=== PATIENT | female | born 1970 | race Caucasian/White ===

== ENCOUNTER 2021-10-01 06:54 | Inpatient (IN) ==
[2021-10-01] MEDS ORDERED: MAGNESIUM SULF RIDER 2 GM/50 ML PREMIX IV STA (07:35)
[2021-10-01 07:44] LABS: Basophils % 0.4 % (0.0-0.8); Eosinophils # 0.1 10*3/uL (0.0-0.87); Eosinophils % 1.3 % (0.00-10.9); Hematocrit 46.3 VOL% (35.7-47.0); Hemoglobin 15.2 GM/DL (12.0-16.0); Immature Granulocytes % 0.4 %; Immature Granulocytes Absolute 0.04 #; Lymphocytes # 2.5 10*3/uL (1.4-4.0); Lymphocytes % 23.7 % (21.3-54.2); Mean Corpuscular HGB Conc 32.8 GM/DL (32-36); Mean Corpuscular Volume 82.4 FL (87-102); Mean Platelet Volume 9.7 FL (9.6-12.0); Monocytes % 5.1 % (1.7-12.7); Neutrophils % 69.1 % (38.7-73.9); Platelet Count 260 T/CUMM (130-400); Red Blood Count 5.62 MC/CUMM (3.8-5.5); Red Cell Distribution Width 14.4 % (9.3-17.3); White Blood Count 10.7 T/CUMM (4-12)
[2021-10-01 08:04] LABS: Albumin 3.2 G/DL (3.4-5.0); Bilirubin,Total 0.9 MG/DL (0.20-1.00); Calcium 9.1 MG/DL (8.5-10.1); Osmolality,Calculated 281.4 MOS/KG (273-304); Potassium 3.4 MMOL/L (3.5-5.1); Total Protein 7.7 G/DL (6.4-8.2)
[2021-10-01] MEDS ORDERED: AMIODARONE INJ 150 MG in DEXTROSE 5% 100 ML IV ONE (08:21)
[2021-10-01] MEDS ORDERED: AMIODARONE 450 MG/9 ML VIAL IV ONE (08:30)
[2021-10-01] MEDS ORDERED: AMIODARONE INJ 450 MG in DEXTROSE 5% 241 ML IV SCH (08:30)
[2021-10-01] MEDS ORDERED: ACETAMINOPHEN 325 MG TABLET PO PRN (08:38)
[2021-10-01] MEDS ORDERED: ONDANSETRON 4 MG/2 ML VIAL IV PRN (08:38)
[2021-10-01] MEDS: ATORVASTATIN 40 MG TABLET PO SCH (09:44)
[2021-10-01] MEDS: ASPIRIN EC 81 MG TABLET PO SCH (09:44)
[2021-10-01] MEDS: ENOXAPARIN 40 MG/0.4 ML SYRINGE SUBCUT SCH (09:44)
[2021-10-01] MEDS: METOPROLOL SUCCINATE XL 25 MG TABLET PO SCH (09:44)
[2021-10-01] MEDS: PANTOPRAZOLE 40 MG TABLET PO SCH (09:44)
[2021-10-01] MEDS ORDERED: POTASSIUM CHLORIDE 20 MEQ TABLET PO STA (10:03)
[2021-10-01] MEDS: AMIODARONE INJ 450 MG in DEXTROSE 5% 241 ML IV SCH (17:02)
[2021-10-01] MEDS: DAPAGLIFLOZIN 10 MG TABLET PO SCH (17:43)
[2021-10-01] MEDS: POTASSIUM CHLORIDE 20 MEQ TABLET PO SCH (20:21)
[2021-10-01] MEDS ORDERED: POTASSIUM CHLORIDE 20 MEQ TABLET PO ONE (22:00)
[2021-10-02 04:48] LABS: Basophils # 0.1 10*3/uL (0.0-0.2); Basophils % 0.4 % (0.0-0.8); Eosinophils # 0.1 10*3/uL (0.0-0.87); Eosinophils % 0.9 % (0.00-10.9); Hemoglobin 14.3 GM/DL (12.0-16.0); Immature Granulocytes % 0.3 %; Immature Granulocytes Absolute 0.04 #; Lymphocytes # 3.1 10*3/uL (1.4-4.0); Lymphocytes % 26.6 % (21.3-54.2); Mean Corpuscular HGB Conc 31.8 GM/DL (32-36); Mean Platelet Volume 9.5 FL (9.6-12.0); Monocytes % 4.9 % (1.7-12.7); Neutrophils % 66.9 % (38.7-73.9); Platelet Count 242 T/CUMM (130-400); Red Blood Count 5.36 MC/CUMM (3.8-5.5); Red Cell Distribution Width 14.2 % (9.3-17.3); White Blood Count 11.7 T/CUMM (4-12)
[2021-10-02 05:15] LABS: Calcium 9.2 MG/DL (8.5-10.1); Osmolality,Calculated 277.5 MOS/KG (273-304); Potassium 4.6 MMOL/L (3.5-5.1)
[2021-10-02] MEDS: ASPIRIN EC 81 MG TABLET PO SCH (09:36)
[2021-10-02] MEDS: DAPAGLIFLOZIN 10 MG TABLET PO SCH (09:36)
[2021-10-02] MEDS: POTASSIUM CHLORIDE 20 MEQ TABLET PO SCH ×2 (09:36→20:30)
[2021-10-02] MEDS: AMIODARONE INJ 450 MG in DEXTROSE 5% 241 ML IV SCH (09:36)
[2021-10-02] MEDS: PANTOPRAZOLE 40 MG TABLET PO SCH (09:37)
[2021-10-02] MEDS: ENOXAPARIN 40 MG/0.4 ML SYRINGE SUBCUT SCH (09:37)
[2021-10-02] MEDS: METOPROLOL SUCCINATE XL 25 MG TABLET PO SCH (09:37)
[2021-10-02] MEDS: ATORVASTATIN 40 MG TABLET PO SCH (09:37)
[2021-10-02] MEDS: AMIODARONE 200 MG TABLET PO SCH ×2 (12:27→20:30)
[2021-10-03 06:24] LABS: Basophils # 0.1 10*3/uL (0.0-0.2); Basophils % 0.4 % (0.0-0.8); Eosinophils # 0.2 10*3/uL (0.0-0.87); Eosinophils % 1.4 % (0.00-10.9); Hematocrit 45.2 VOL% (35.7-47.0); Hemoglobin 14.5 GM/DL (12.0-16.0); Immature Granulocytes % 0.3 %; Immature Granulocytes Absolute 0.03 #; Lymphocytes # 2.9 10*3/uL (1.4-4.0); Lymphocytes % 25.2 % (21.3-54.2); Mean Corpuscular HGB Conc 32.1 GM/DL (32-36); Mean Corpuscular Volume 83.5 FL (87-102); Mean Platelet Volume 9.9 FL (9.6-12.0); Monocytes % 6.1 % (1.7-12.7); Neutrophils % 66.6 % (38.7-73.9); Platelet Count 245 T/CUMM (130-400); Red Blood Count 5.41 MC/CUMM (3.8-5.5); Red Cell Distribution Width 14.4 % (9.3-17.3); White Blood Count 11.4 T/CUMM (4-12)
[2021-10-03 06:54] LABS: Calcium 9.4 MG/DL (8.5-10.1)
[2021-10-03] MEDS: DAPAGLIFLOZIN 10 MG TABLET PO SCH (08:33)
[2021-10-03] MEDS: POTASSIUM CHLORIDE 20 MEQ TABLET PO SCH ×2 (08:33→20:17)
[2021-10-03] MEDS: AMIODARONE 200 MG TABLET PO SCH ×2 (08:34→20:17)
[2021-10-03] MEDS: PANTOPRAZOLE 40 MG TABLET PO SCH (08:34)
[2021-10-03] MEDS: METOPROLOL SUCCINATE XL 25 MG TABLET PO SCH (08:34)
[2021-10-03] MEDS: ATORVASTATIN 40 MG TABLET PO SCH (08:34)
[2021-10-03] MEDS: ASPIRIN EC 81 MG TABLET PO SCH (08:34)
[2021-10-03] MEDS: ENOXAPARIN 40 MG/0.4 ML SYRINGE SUBCUT SCH (08:34)
[2021-10-03] MEDS: SPIRONOLACTONE 50 MG TABLET PO SCH (11:00)
[2021-10-03] MEDS ORDERED: ALUM/MAG/SIMETH/LIDO VISC 1:1 30 ML BOTTLE PO ONE (23:54)
[2021-10-04 05:18] LABS: Basophils # 0.1 10*3/uL (0.0-0.2); Basophils % 0.4 % (0.0-0.8); Eosinophils # 0.1 10*3/uL (0.0-0.87); Eosinophils % 1.1 % (0.00-10.9); Hematocrit 45.7 VOL% (35.7-47.0); Hemoglobin 14.5 GM/DL (12.0-16.0); Immature Granulocytes % 0.3 %; Immature Granulocytes Absolute 0.04 #; Lymphocytes # 3.7 10*3/uL (1.4-4.0); Lymphocytes % 31.2 % (21.3-54.2); Mean Corpuscular HGB Conc 31.7 GM/DL (32-36); Mean Corpuscular Volume 82.9 FL (87-102); Mean Platelet Volume 9.7 FL (9.6-12.0); Platelet Count 259 T/CUMM (130-400); Red Blood Count 5.51 MC/CUMM (3.8-5.5); Red Cell Distribution Width 14.1 % (9.3-17.3); White Blood Count 11.8 T/CUMM (4-12)
[2021-10-04 05:42] LABS: Calcium 9.6 MG/DL (8.5-10.1); Osmolality,Calculated 275.7 MOS/KG (273-304); Potassium 4.1 MMOL/L (3.5-5.1)
[2021-10-04] MEDS: DAPAGLIFLOZIN 10 MG TABLET PO SCH (08:29)
[2021-10-04] MEDS: PANTOPRAZOLE 40 MG TABLET PO SCH (08:30)
[2021-10-04] MEDS: ASPIRIN EC 81 MG TABLET PO SCH (08:30)
[2021-10-04] MEDS: ENOXAPARIN 40 MG/0.4 ML SYRINGE SUBCUT SCH (08:30)
[2021-10-04] MEDS: POTASSIUM CHLORIDE 20 MEQ TABLET PO SCH ×2 (08:30→20:27)
[2021-10-04] MEDS: AMIODARONE 200 MG TABLET PO SCH ×2 (08:30→20:27)
[2021-10-04] MEDS: METOPROLOL SUCCINATE XL 25 MG TABLET PO SCH (08:30)
[2021-10-04] MEDS: ATORVASTATIN 40 MG TABLET PO SCH (08:30)
[2021-10-04] MEDS: SPIRONOLACTONE 50 MG TABLET PO SCH (08:31)
[2021-10-04] MEDS ORDERED: ZOLPIDEM 5 MG TABLET PO PRN (15:41)
[2021-10-04] MEDS: ALUMINUM/MAGNES/SIMETH MAX STR 30 ML UDCUP PO PRN ×2 (15:47→20:29)
[2021-10-05 05:41] LABS: Basophils # 0.1 10*3/uL (0.0-0.2); Basophils % 0.6 % (0.0-0.8); Eosinophils # 0.2 10*3/uL (0.0-0.87); Eosinophils % 1.5 % (0.00-10.9); Hematocrit 44.8 VOL% (35.7-47.0); Hemoglobin 14.5 GM/DL (12.0-16.0); Immature Granulocytes % 0.4 %; Immature Granulocytes Absolute 0.05 #; Lymphocytes # 3.5 10*3/uL (1.4-4.0); Lymphocytes % 30.3 % (21.3-54.2); Mean Corpuscular HGB Conc 32.4 GM/DL (32-36); Mean Corpuscular Volume 83.1 FL (87-102); Mean Platelet Volume 9.8 FL (9.6-12.0); Monocytes % 7.9 % (1.7-12.7); Neutrophils % 59.3 % (38.7-73.9); Platelet Count 272 T/CUMM (130-400); Red Blood Count 5.39 MC/CUMM (3.8-5.5); Red Cell Distribution Width 14.2 % (9.3-17.3); White Blood Count 11.7 T/CUMM (4-12)
[2021-10-05 05:58] LABS: Calcium 9.3 MG/DL (8.5-10.1); Potassium 4.2 MMOL/L (3.5-5.1)
[2021-10-05] MEDS: OXYMETAZOLINE 0.05% NASAL SPRAY 15 ML BOTTLE BOTH NARES SCH ×2 (09:06→20:04)
[2021-10-05] MEDS: AMIODARONE 200 MG TABLET PO SCH ×2 (09:07→20:03)
[2021-10-05] MEDS: ATORVASTATIN 40 MG TABLET PO SCH (09:07)
[2021-10-05] MEDS: SPIRONOLACTONE 50 MG TABLET PO SCH (09:07)
[2021-10-05] MEDS: POTASSIUM CHLORIDE 20 MEQ TABLET PO SCH ×2 (09:07→20:03)
[2021-10-05] MEDS: ASPIRIN EC 81 MG TABLET PO SCH (09:07)
[2021-10-05] MEDS: PANTOPRAZOLE 40 MG TABLET PO SCH (09:07)
[2021-10-05] MEDS: METOPROLOL SUCCINATE XL 25 MG TABLET PO SCH (09:07)
[2021-10-05] MEDS: DAPAGLIFLOZIN 10 MG TABLET PO SCH (09:11)
[2021-10-05] MEDS ORDERED: ceFAZolin 1,000 MG VIAL IRRIG ONE (13:00)
[2021-10-05] MEDS ORDERED: diphenhydrAMINE CAP 50 MG CAPSULE PO ONE (14:00)
[2021-10-05] MEDS ORDERED: DIAZEPAM 5 MG TABLET PO ONE (14:00)
[2021-10-05] MEDS ORDERED: TISSUE ADHESIVE 1 EACH APPLICATOR TOP ONE (16:35)
[2021-10-06 07:29] LABS: Calcium 9.5 MG/DL (8.5-10.1); Osmolality,Calculated 273.1 MOS/KG (273-304); Potassium 4.6 MMOL/L (3.5-5.1)
[2021-10-06 07:46] LABS: Basophils # 0.1 10*3/uL (0.0-0.2); Basophils % 0.6 % (0.0-0.8); Eosinophils # 0.1 10*3/uL (0.0-0.87); Eosinophils % 1.2 % (0.00-10.9); Immature Granulocytes % 0.4 %; Immature Granulocytes Absolute 0.05 #; Lymphocytes # 3.3 10*3/uL (1.4-4.0); Lymphocytes % 28.6 % (21.3-54.2); Mean Corpuscular HGB Conc 32.7 GM/DL (32-36); Mean Corpuscular Volume 82.1 FL (87-102); Mean Platelet Volume 9.8 FL (9.6-12.0); Monocytes % 6.7 % (1.7-12.7); Neutrophils % 62.5 % (38.7-73.9); Platelet Count 283 T/CUMM (130-400); Red Blood Count 5.97 MC/CUMM (3.8-5.5); Red Cell Distribution Width 14.3 % (9.3-17.3); White Blood Count 11.6 T/CUMM (4-12)
[2021-10-06] MEDS: POTASSIUM CHLORIDE 20 MEQ TABLET PO SCH (08:49)
[2021-10-06] MEDS: METOPROLOL SUCCINATE XL 25 MG TABLET PO SCH (08:49)
[2021-10-06] MEDS: ATORVASTATIN 40 MG TABLET PO SCH (08:49)
[2021-10-06] MEDS: PANTOPRAZOLE 40 MG TABLET PO SCH (08:49)
[2021-10-06] MEDS: AMIODARONE 200 MG TABLET PO SCH (08:49)
[2021-10-06] MEDS: DAPAGLIFLOZIN 10 MG TABLET PO SCH (08:49)
[2021-10-06] MEDS: ASPIRIN EC 81 MG TABLET PO SCH (08:51)
[2021-10-06] MEDS: SPIRONOLACTONE 50 MG TABLET PO SCH (08:51)
[2021-10-06] MEDS: OXYMETAZOLINE 0.05% NASAL SPRAY 15 ML BOTTLE BOTH NARES SCH (08:51)
[2021-10-06] MEDS ORDERED: DIAZEPAM 5 MG TABLET PO ONE (10:07)
[2021-10-06] MEDS ORDERED: diphenhydrAMINE CAP 25 MG CAPSULE PO ONE (10:07)
[2021-10-06] MEDS ORDERED: LIDOCAINE 1% 20 ML VIAL ONE (10:14)
[2021-10-06] MEDS ORDERED: HEPARIN/NACL 0.9% 2 UNITS/ML 1,000 UNIT/500 ML BAG IV ONE (10:14)
[2021-10-06] MEDS ORDERED: ceFAZolin 1,000 MG VIAL ONE (10:15)
[2021-10-06] MEDS ORDERED: MIDAZOLAM 2 MG/2 ML VIAL ONE ×2 (10:31→11:03)
[2021-10-06] MEDS ORDERED: fentaNYL 100 MCG/2 ML VIAL ONE ×2 (10:32→11:03)
[2021-10-06 12:51] VITALS: BP 135/90
== END 2021-10-06 14:59 | disposition home or self-care (01) | DRG 245 ==
LOC: EDUNIT# → EDBD → N.ED 06:54 → SUATTDRO 08:38 → N.EDINP 08:38 → N.ICU 16:30 → N.TELES 10-02 18:22
PROVIDERS: ADMIT Internal Medicine Cardiovascular Disease; ATTEND Internal Medicine Interventional Cardiology

== ENCOUNTER 2021-10-16 00:10 | Observation (INO) ==
[2021-10-16 01:50] LABS: Basophils # 0.1 10*3/uL (0.0-0.2); Basophils % 0.6 % (0.0-0.8); Eosinophils # 0.2 10*3/uL (0.0-0.87); Eosinophils % 1.4 % (0.00-10.9); Hematocrit 42.5 VOL% (35.7-47.0); Hemoglobin 13.9 GM/DL (12.0-16.0); Immature Granulocytes % 0.3 %; Immature Granulocytes Absolute 0.04 #; Lymphocytes # 3.4 10*3/uL (1.4-4.0); Lymphocytes % 26.4 % (21.3-54.2); Mean Corpuscular HGB Conc 32.7 GM/DL (32-36); Mean Corpuscular Volume 83.2 FL (87-102); Mean Platelet Volume 9.7 FL (9.6-12.0); Monocytes % 6.4 % (1.7-12.7); Neutrophils % 64.9 % (38.7-73.9); Platelet Count 267 T/CUMM (130-400); Red Blood Count 5.11 MC/CUMM (3.8-5.5); Red Cell Distribution Width 14.7 % (9.3-17.3); White Blood Count 12.9 T/CUMM (4-12)
[2021-10-16 02:04] LABS: Albumin 3.1 G/DL (3.4-5.0); Bilirubin,Total 0.4 MG/DL (0.20-1.00); Calcium 8.9 MG/DL (8.5-10.1); Osmolality,Calculated 275.7 MOS/KG (273-304); Potassium 3.7 MMOL/L (3.5-5.1)
[2021-10-16] MEDS ORDERED: ACETAMINOPHEN 325 MG TABLET PO PRN (03:02)
[2021-10-16] MEDS ORDERED: ONDANSETRON 4 MG/2 ML VIAL IV PRN (03:02)
[2021-10-16] MEDS ORDERED: POTASSIUM CHLORIDE 20 MEQ TABLET PO ONE (06:33)
[2021-10-16] MEDS ORDERED: MAGNESIUM SULF RIDER 2 GM/50 ML PREMIX IV STA (06:33)
[2021-10-16] MEDS ORDERED: SPIRONOLACTONE 50 MG TABLET PO SCH (09:00)
[2021-10-16] MEDS ORDERED: AMIODARONE 200 MG TABLET PO SCH (09:00)
[2021-10-16] MEDS ORDERED: ATORVASTATIN 40 MG TABLET PO SCH (09:00)
[2021-10-16] MEDS ORDERED: ENOXAPARIN 40 MG/0.4 ML SYRINGE SUBCUT SCH (09:00)
[2021-10-16] MEDS ORDERED: NON-FORMULARY MEDICATION (Aspirin 81 mg Capsule,Delayed Release(Dr/Ec)) PO SCH (09:00)
[2021-10-16] MEDS ORDERED: METOPROLOL SUCCINATE XL 25 MG TABLET PO SCH (09:00)
[2021-10-16] MEDS ORDERED: LOSARTAN 25 MG TABLET PO SCH (09:00)
[2021-10-16] MEDS ORDERED: PANTOPRAZOLE 40 MG TABLET PO SCH (09:00)
[2021-10-16] MEDS ORDERED: CLORAZEPATE 7.5 MG TABLET PO PRN (09:38)
[2021-10-16] MEDS ORDERED: DAPAGLIFLOZIN 10 MG TABLET PO SCH (11:00)
[2021-10-16 11:27] VITALS: BP 116/65
== END 2021-10-16 11:00 | disposition home or self-care (01) ==
LOC: EDUNIT# → EDBD → N.EDINP 00:10 → N.ED 00:10 → N.EDINP 11:00
PROVIDERS: ADMIT Internal Medicine; ATTEND Internal Medicine